=== PATIENT | female | born 1940 | race Caucasian/White ===

== ENCOUNTER 2021-06-18 16:21 | Emergency (ER) | payer OTHER ==
[~2021-06-18 16:21] MED LIST: ACIDOPHILUS1 EAC4 PO; BENTYL10 MG PO; CLEOCIN300 MG PO; CLONIDINE 0.2M0.2 MG PO; DOXYCYCLINE HY100 MG PO; GLUCOTROL XL5 MG PO; KAPSPARGO SPRI100 MG PO; KEFLEX500 MG PO; LIPITOR 10MG TA10 MG PO; MACROBID100 MG PO; MEDROL 4MG DOSEP4 MG PO; MELOXICAM15 MG PO; METFORMIN HCL500 MG PO; SYNTHROID50 MCG PO; ZESTRIL40 MG PO; ZOLOFT50 MG PO
[2021-06-18 19:19] LABS: HCT 35.2 % (37.0-47.0); HGB 11.3 g/dl (12.5-16.0); LYMPHOCYTE 32.3 % (15-48); MCH 27.4 pg (25.0-31.0); MCHC 32.1 g/dL (32.0-36.0); MCV 85.2 fL (78.0-100.0); MONOCYTE 8.2 % (0-12); NEUTROPHIL 53.2 % (41-80); NRBC 0; PLT 156 K/uL (150-400); RBC 4.13 M/uL (4.20-5.40); RDW 13.3 % (11.5-14.0); WBC 6.3 K/uL (4.0-10.5)
[2021-06-18 19:29] LABS: ALBUMIN 3.6 g/dL (3.4-5.0); BILIRUBIN - TOTAL 0.3 mg/dL (0.2-1.0); BUN/CREAT RATIO (CALC) 33.7 RATIO; CREATININE 0.89 mg/dL (0.51-0.95); GLOBULIN (CALCULATION) 3.3 g/dL; POTASSIUM 4.3 mmol/L (3.5-5.1); TOTAL PROTEIN 6.9 g/dL (6.4-8.2)
[2021-06-18 19:38] LABS: PRO-BNP 402 pg/mL (<450)
[2021-06-18 22:36] LABS: INR 1.06 (0.9-1.2); PROTHROMBIN TIME 13.2 SECONDS (11.8-13.4)
[2021-06-18 22:37] LABS: PTT 26.8 SECONDS (24.4-34.7)
[2021-06-19 04:48] LABS: BASOPHIL 0.4 % (0-2); EOSINOPHIL 4.1 % (0-7); HCT 33.9 % (37.0-47.0); HGB 11.1 g/dl (12.5-16.0); LYMPHOCYTE 37.2 % (15-48); MCH 27.5 pg (25.0-31.0); MCHC 32.7 g/dL (32.0-36.0); MCV 83.9 fL (78.0-100.0); MONOCYTE 7.4 % (0-12); MPV 9.5 fL (6.0-9.5); NEUTROPHIL 50.6 % (41-80); NRBC 0; PLT 136 K/uL (150-400); RBC 4.04 M/uL (4.20-5.40); RDW 13.1 % (11.5-14.0); WBC 7.3 K/uL (4.0-10.5)
== END 2021-06-18 16:40 | disposition home or self-care (01) ==
LOC: FER 16:21
PROVIDERS: Emergency Medicine
DX: I82.413 Acute embolism and thrombosis of femoral vein, bilateral (principal); I82.433 Acute embolism and thrombosis of popliteal vein, bilateral; I10 Essential (primary) hypertension; E11.9 Type 2 diabetes mellitus without complications; Z88.5 Allergy status to narcotic agent; Z79.84 Long term (current) use of oral hypoglycemic drugs; Z79.899 Other long term (current) drug therapy; Z20.822 Contact with and (suspected) exposure to COVID-19
CPT/HCPCS: 36415; 71045; 71275; 80053; 83880; 84484; 85025; 85379; 85610; 85730; 93005; 93971; J1644; J7040; Q9967; U0002

== ENCOUNTER 2021-07-03 17:53 | Emergency (ER) | payer OTHER ==
[2021-07-03 20:21] LABS: BASOPHIL 0.8 % (0-2); EOSINOPHIL 4.7 % (0-7); HCT 35.7 % (37.0-47.0); HGB 11.3 g/dl (12.5-16.0); LYMPHOCYTE 32.5 % (15-48); MCH 27.5 pg (25.0-31.0); MCHC 31.7 g/dL (32.0-36.0); MCV 86.9 fL (78.0-100.0); NEUTROPHIL 52.3 % (41-80); NRBC 0; PLT 252 K/uL (150-400); RBC 4.11 M/uL (4.20-5.40); RDW 13.4 % (11.5-14.0); WBC 6.1 K/uL (4.0-10.5)
[2021-07-03 20:32] LABS: ALBUMIN 3.4 g/dL (3.4-5.0); BILIRUBIN - TOTAL 0.3 mg/dL (0.2-1.0); BUN/CREAT RATIO (CALC) 32.9 RATIO; CREATININE 0.85 mg/dL (0.51-0.95); GLOBULIN (CALCULATION) 3.7 g/dL; POTASSIUM 4.4 mmol/L (3.5-5.1); TOTAL PROTEIN 7.1 g/dL (6.4-8.2)
[2021-07-03 21:51] LABS: PRO-BNP 138 pg/mL (<450)
[2021-07-03] MEDS ORDERED: CEPHALEXIN500 M1 PO (23:08)
[2021-07-04] MEDS ORDERED: CEPHALEXIN500 M1 PO (00:22)
== END 2021-07-04 00:22 | disposition home or self-care (01) ==
LOC: FER 17:53
PROVIDERS: Internal Medicine
DX: I26.99 Other pulmonary embolism without acute cor pulmonale (principal); I82.402 Acute embolism and thrombosis of unspecified deep veins of left lower extremity; L03.116 Cellulitis of left lower limb; E11.9 Type 2 diabetes mellitus without complications; I10 Essential (primary) hypertension; Z88.2 Allergy status to sulfonamides; Z88.5 Allergy status to narcotic agent; Z79.01 Long term (current) use of anticoagulants
CPT/HCPCS: 36415; 71275; 80053; 83880; 84145; 84484; 85025; 93005; Q9967